=== PATIENT | female | born 2000 | race Caucasian/White ===

== ENCOUNTER 2022-09-13 12:35 | Emergency (ER) | payer OTHER, SELFPAY ==
[2022-09-13 12:57] VITALS: BP 101/74; PULSE 84; RESP 18; TEMP 37.2; O2SAT 96; BMI 22.2
[2022-09-13 13:54] LABS: Amorphous Sediment Urine 1+; Bacteria Urine Moderate (10-30); Culture Indicated Urine Specimen Cultured; RBC Urine 0-1/HPF (0-5/HPF); Squamous Epithelial Cell Urine 1-5 /HPF (0-5/HPF); WBC Urine 5-10/HPF (0-5/HPF)
--- NOTE | 2022-09-13 14:38 | ED.FEMALEGU ---
HPI - Female Genitourinary <Brittany Romero PA-C - Last Filed: 09/13/22 16:04> General Chief complaint: Urogenital-Female Stated complaint: 8 Weeks , Bleeding Time Seen by Provider: 09/13/22 13:58 Source: patient Mode of arrival: Ambulatory History of Present Illness HPI Narrative: the patient is a very pleasant 22 yo femlae currently 8 weeks who noted very small amount of blood in her what she assumes vagina, which did did not recur She however has been complaiing of some burning on urinatng and some vaginal itching sheid not take any remedies for that Pt is concerned as she was diagnosed with ectopic n 2020, and has had chemical since then tried to conceive and quite excited about her new no abd cramping, no excessive n/v No fever no chills Related Data Previous Rx's Medication Instructions Recorded cephalexin 250 mg capsule 250 mg PO TID #15 caps 09/13/22 clotrimazole 1 % topical cream 1 applic topical BID #30 grams 09/13/22 Allergies Allergy/AdvReac Type Severity Reaction Status Date / Time No Known Drug Allergies Allergy Verified 09/13/22 13:02 Review of Systems <JAKE Lainez Last Filed: 09/13/22 16:04> Review of Systems Narrative: GENERAL: Denies chills, fatigue, malaise, fever, sweats. HEENT: Denies sinus pain, ear pain, sore throat, difficulty swallowing, dizziness. RESPIRATORY: Denies dyspnea, cough, wheezing, hemoptysis, sputum. CARDIOVASCULAR: Denies chest pain, palpitations, orthopnea, edema, GASTROINTESTINAL: Denies nausea, vomiting, abdominal pain, diarrhea, constipation, melena. : Admits dysuria, and some frequency, denies incontinence, hematuria, urinary retention. Has some vaginal itching MUSCULOSKELETAL: denies weakness, joint pain, or bony pain SKIN: Denies rash, skin lesions, or other NEUROLOGIC: Denies weakness, headache, numbness, change in speech, confusion, seizures, incoordination. PSYCHIATRIC: No concerning psychosocial issues. 12 point review of systems is negative except for those stated above Patient History <JAKE Lainez Last Filed: 09/13/22 16:04> Substance Use Type: does not use Exam <Brittany Romero PA-C - Last Filed: 09/13/22 16:04> Narrative Exam Narrative: GENERAL: 22 year old patient appears stated age. Well-developed patient, in no acute distress. HEAD: Atraumatic. Normocephalic. EYES: Pupils equal round and reactive. Extraocular motions intact. No scleral icterus. No injection or drainage. ENT: Nose without bleeding, purulent drainage. Throat without erythema, tonsillar hypertrophy or exudate. Airway patent. NECK: Trachea midline. Non tender CARDIOVASCULAR: Regular rate and rhythm without murmurs, gallops, or rubs. RESPIRATORY: Clear to auscultation. Breath sounds equal bilaterally. No wheezes, rales, or rhonchi. GASTROINTESTINAL: Abdomen soft, non-tender, nondistended. EXTREMITIES: No edema or joint tenderness. Genitourinary normal female genitals, minimal normal-appearing discharge. Vaginal culture obtained NEURO: AOx3. No focal deficits SKIN: No rash or erythema of visible areas Initial Vital Signs Initial Vital Signs: Vital Signs Temperature 98.9 F 09/13/22 12:57 Pulse Rate 84 09/13/22 12:57 Respiratory Rate 18 09/13/22 12:57 Blood Pressure 101/74 09/13/22 12:57 Pulse Oximetry 96 09/13/22 12:57 Oxygen Delivery Method 09/13/22 12:57 <Matthew Hernandez DO - Last Filed: 09/13/22 16:08> Initial Vital Signs Initial Vital Signs: Vital Signs Temperature 98.9 F 09/13/22 12:57 Pulse Rate 84 09/13/22 12:57 Respiratory Rate 18 09/13/22 12:57 Blood Pressure 101/74 09/13/22 12:57 Pulse Oximetry 96 09/13/22 12:57 Oxygen Delivery Method 09/13/22 12:57 Course <Brittany Romero PA-C - Last Filed: 09/13/22 16:04> Orders Ordered: ED Orders 09/13/22 13:07 Urine Culture Stat Urine Microscopic Stat 09/13/22 16:04 Genital Culture Stat Vital Signs Vital signs: Vital Signs - 8 hr 09/13/22 12:57 09/13/22 16:06 Temperature 98.9 F Pulse Rate 84 87 Respiratory Rate 18 17 Blood Pressure 101/74 105/76 Pulse Oximetry 96 99 Oxygen Delivery Method Room Air Room Air <Matthew LeongDO sam - Last Filed: 09/13/22 16:08> Orders Ordered: ED Orders 09/13/22 13:07 Urine Culture Stat Urine Microscopic Stat 09/13/22 16:04 Genital Culture Stat Vital Signs Vital signs: Vital Signs - 8 hr 09/13/22 12:57 09/13/22 16:06 Temperature 98.9 F Pulse Rate 84 87 Respiratory Rate 18 17 Blood Pressure 101/74 105/76 Pulse Oximetry 96 99 Oxygen Delivery Method Room Air Room Air MDM - Female Genitourinary <Brittany Romero PA-C - Last Filed: 09/13/22 16:04> Lab Data Labs: Lab Results 09/13/22 Range/Units 13:07 Urine RBC 0-1/hpf (0-5/HPF) Urine WBC 5-10/hpf H (0-5/HPF) Ur Squamous Epith Cells 1-5 /hpf (0-5/HPF) Amorphous Sediment 1+ Urine Bacteria Moderate (10-30) H (None) Ur Culture Indicated? Specimen cultured Point of Care Testing Test Results Positive Urine Dip Bedside Urine Glucose Negative Bedside Urine Bilirubin - Negative Bedside Urine Ketone - Negative Urine Specific Reading 1.025 Bedside Urine Occult Blood +/- Bedside Urine pH 6.0 Bedside Urine Protein - Negative Bedside Urine Urobilinogen - Negative Bedside Urine Nitrite - Negative Bedside Urine Leukocytes ++ 125 Esterase MDM Narrative Medical decision making narrative: Discussed with Ms Carr findings, Multiple etiologies for patient's symptoms considered include, but not limited to: bacterial vaginosis, candidiasis the miscarriage is less likely given absence of cramps and witnessed hemorrhage She has positive UA for UTI We obtained vaginal swab to test for BV / candidiasis and if positive, will start treatment Patient's symptoms improved over duration of stay . History, physical exam, labs, imaging, and response to therapies have been reassuring. Findings and discharge diagnosis discussed with patient followed by verbalization of understanding Return precautions discussed with patient/family whom verbalize understanding. Also strongly advised to establish MEDICAL COLLECTIONS to monitor her <Matthew DangDO sam - Last Filed: 09/13/22 16:08> Lab Data Labs: Lab Results 09/13/22 Range/Units 13:07 Urine RBC 0-1/hpf (0-5/HPF) Urine WBC 5-10/hpf H (0-5/HPF) Ur Squamous Epith Cells 1-5 /hpf (0-5/HPF) Amorphous Sediment 1+ Urine Bacteria Moderate (10-30) H (None) Ur Culture Indicated? Specimen cultured Point of Care Testing Test Results Positive Urine Dip Bedside Urine Glucose Negative Bedside Urine Bilirubin - Negative Bedside Urine Ketone - Negative Urine Specific Reading 1.025 Bedside Urine Occult Blood +/- Bedside Urine pH 6.0 Bedside Urine Protein - Negative Bedside Urine Urobilinogen - Negative Bedside Urine Nitrite - Negative Bedside Urine Leukocytes ++ 125 Esterase Discharge Plan Departure Patient Disposition: Home Clinical Impression: Urinary tract infection, Vaginitis Instructions: DI for Urinary Tract Infection (UTI) Activity Restrictions/Additional Instructions: *You have been diagnosed with UTI *What to do: *Please continue to take your regular medications as directed. New medication prescriptions sent to your pharmacy: KEflex , Clotrimazole *Please follow up with your primary care provider in 2-3 days, call for an appointment. Let them know you were seen in the Emergency Department and that we ask that you be seen in follow up. We will electronically transmit a record of today's note if your PCP is in our system *If you do not have a primary care provider please contact the [facility] Resource line at [phone]. They will ask some questions about your medical history and help get you set up with a doctor in the community. *Return to Emergency Department if you should have any new, worsening or concerning symptoms, such as fever greater than 101 F, shaking chills, worsening pain, bleeding persistent vomiting or other bothersome symptoms Prescriptions: New cephalexin 250 mg capsule 250 mg PO TID Qty: 15 0RF clotrimazole 1 % cream 1 applic topical BID Qty: 30 0RF Rx Instructions: apply thin film to affected area Referrals: Miscellaneous,Doctor, [Primary Care Provider] - Visit Report Forms: Patient Portal/API <Matthew Hernandez DO - Last Filed: 09/13/22 16:08> Cosign ED Attending Costreyature Attestation: Dr Hernandez Co-Sign Statement: I was available for consultation during this patient's emergency department visit. This chart is signed by myself for administrative purposes only. I did not have direct contact with this patient during this visit. They were seen independently by the APC.
[2022-09-13 16:06] VITALS: BP 105/76; PULSE 87; RESP 17; O2SAT 99
--- NOTE | 2022-09-14 10:10 | PC.NURSE ---
Pt called stating she did not get her prescriptions. Dr. Hernandez reviewed and sent scripts to [facility] w/ changes to original scripts.
== END 2022-09-13 16:06 | disposition home or self-care (01) ==
PROVIDERS: Emergency Medicine; Emergency Provider Physician Assistant Medical
DX: O23.41 Unspecified infection of urinary tract in pregnancy, first trimester (principal); N39.0 Urinary tract infection, site not specified; O23.591 Infection of other part of genital tract in pregnancy, first trimester; Z3A.08 8 weeks gestation of pregnancy
CPT/HCPCS: 81003; 81015; 81025; 87070; 87086; 87205; 99282

== ENCOUNTER 2023-02-21 21:30 | Emergency (ER) | payer OTHER, SELFPAY ==
[2023-02-21 21:35] VITALS: BP 121/79; PULSE 88; RESP 18; TEMP 36.8; O2SAT 97; BMI 28.3
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
[2023-02-21 22:34] LABS: Bacteria Urine Few (2-10); Culture Indicated Urine Cult Not Indicated; RBC Urine None Seen (0-5/HPF); Squamous Epithelial Cell Urine 10-30 /HPF (0-5/HPF); WBC Urine 0-1/HPF (0-5/HPF)
--- NOTE | 2023-02-21 23:11 | PC.NURSE ---
Patient with reactive Category 1 NST. FHR rate baseline 140 bpm with moderate variability and accelerations. No uterine activity noted by TOCO or by patient. Patient feeling movement by end of NST. movement noted audibly and by patient. Instructions given to patient of when to call doctor or return to ED regarding signs of labor, severe abdominal pain, vaginal bleeding, leaking of amniotic fluid, or continued decreased movement. Patient verbalized understanding.
[2023-02-21 23:32] VITALS: BP 122/68; PULSE 74; RESP 18; TEMP 36.3; O2SAT 98
== END 2023-02-21 23:34 | disposition home or self-care (01) ==
PROVIDERS: Emergency Provider Emergency Medicine
DX: O26.893 Other specified pregnancy related conditions, third trimester (principal); R10.9 Unspecified abdominal pain; Z3A.31 31 weeks gestation of pregnancy
CPT/HCPCS: 76815; 81003; 81015; 99283